=== PATIENT | male | born 2000 | race Caucasian/White ===

== ENCOUNTER 2019-05-30 15:55 | Emergency (ER) | payer SELFPAY ==
[2019-05-30] MEDS: HYDROCODONE/APAP (5/325) TAB PO (16:42)
[2019-05-30] MEDS: KETOROLAC 30 MG INJ IM (16:42)
== END 2019-05-30 17:52 | disposition home or self-care (01) ==
LOC: FTE 15:55
DX: S80.11XA Contusion of right lower leg, initial encounter (principal); W50.1XXA Accidental kick by another person, initial encounter; Y92.322 Soccer field as the place of occurrence of the external cause
CPT/HCPCS: 73590; 96372; 99284-25